=== PATIENT | male | born 1970 | race Two or more races ===

== ENCOUNTER 2023-09-29 11:27 | Emergency (ER) | payer MEDICAID ==
[~2023-09-29] VITALS: Ht 182.9 cm; Wt 93.2 kg
[2023-09-29 11:32] VITALS: TEMP 98.6
[2023-09-29] MEDS: KETOROLAC TROMETHAMINE 60 MG/2 ML VIAL IM ONE (11:58)
[2023-09-29] MEDS: PERTUSS(ACELL),DIPH,TET/PF 0.5 ML SYRINGE [ADULT] IM. ONE (12:04)
[2023-09-29] MEDS: OxyCODONE HCL/ACETAMINOPHEN 5-325 MG TABLET PO ONE (13:05)
[2023-09-29] MEDS: BACITRACIN 28 GM OINTMENT TP ONE (13:19)
[2023-09-29 14:08] VITALS: BP 114/78; PULSE 76; RESP 18
[2023-09-29] MEDS ORDERED: IBUP-1492 PO (14:27)
[2023-09-29] MEDS ORDERED: OXYC-38 PO (14:28)
== END 2023-09-29 15:02 | disposition home or self-care (01) ==
LOC: EMS 11:28
DX: S50.812A Abrasion of left forearm, initial encounter (principal); S80.212A Abrasion, left knee, initial encounter; S80.211A Abrasion, right knee, initial encounter; V98.8XXA Other specified transport accidents, initial encounter; Y93.89 Activity, other specified; Y92.89 Other specified places as the place of occurrence of the external cause; Y99.8 Other external cause status
CPT/HCPCS: 29505; 90471; 90715; 96372; 99284; 99285; J1885